=== PATIENT | female | born 1950 | race African-American/Black ===

== ENCOUNTER 2017-12-04 15:47 | Emergency (ER) | payer MEDICARE, MEDICAID ==
[2017-12-04] MEDS ORDERED: Ibuprofen 200 MG TAB ONE (16:07)
[2017-12-04] MEDS ORDERED: Acetaminophen 500 MG TAB ONE (16:16)
--- NOTE | 2017-12-04 17:07 | RAD ---
TWO VIEWS CHEST: Comparison: 07-17-13 History: Congestion for two weeks. FINDINGS: Two views of the chest show normal sized cardiomediastinal silhouette. There is no evidence of consol idation, mass, or pleural effusion. The bones are unremarkable. IMPRESSION: No evidence of acute cardiopulmonary disease. POS: [facility]
== END 2017-12-04 16:40 | disposition home or self-care (01) ==
LOC: ERS 15:47
DX: J06.9 Acute upper respiratory infection, unspecified (principal); I25.10 Atherosclerotic heart disease of native coronary artery without angina pectoris; E78.5 Hyperlipidemia, unspecified; E11.9 Type 2 diabetes mellitus without complications; I10 Essential (primary) hypertension
CPT/HCPCS: 71046; 94640; J7620

== ENCOUNTER 2018-01-24 13:48 | Outpatient (CLI) | payer MEDICARE, MEDICAID | END 2018-01-24 13:49 | disposition home or self-care (01) | LOC: BICMAMMO 13:48 | PROVIDERS: ATTEND Family Medicine | DX: Z12.31 Encounter for screening mammogram for malignant neoplasm of breast (principal) | CPT/HCPCS: 77063; 77067 ==

== ENCOUNTER 2018-03-15 05:00 | Emergency (ER) | payer MEDICARE, MEDICAID | END 2018-03-15 05:45 | disposition home or self-care (01) | LOC: ERS 05:00 | DX: T63.461A Toxic effect of venom of wasps, accidental (unintentional), initial encounter (principal); R60.0 Localized edema; E11.9 Type 2 diabetes mellitus without complications; E78.5 Hyperlipidemia, unspecified; I10 Essential (primary) hypertension; G40.909 Epilepsy, unspecified, not intractable, without status epilepticus; I25.10 Atherosclerotic heart disease of native coronary artery without angina pectoris | CPT/HCPCS: 99282 ==

== ENCOUNTER 2018-11-17 06:28 | Outpatient (CLI) | payer MEDICARE, MEDICAID ==
--- NOTE | 2018-11-17 09:31 | MRI ---
LUMBAR SPINE MRI NONCONTRAST: INDICATION: Bilateral lower extremity pain and low back pain. FINDINGS: Vertebral body heights and disk space heights are preserved. There is no significant malalignment or evidence of acute marrow edema. Conus medullaris is normal in morphology and terminates at the L1-2 level. There are mild multilevel disk bulges involving the L2-3, L3-4, and L4-5 levels without sign ificant central canal or neural foraminal stenosis at the L2-3 or L3-4 levels. At the L4-5 level, th ere is mild central canal stenosis and mild crowding of the nerve roots of each subarticular zone to involve the bilateral traversing L5 nerve roots. There is minimal narrowing of each neural foramen. There is mild bilateral degenerative facet hypertrophy. IMPRESSION: Mild disk degenerative change of the mid to lower lumbar spine. POS: [facility]
== END 2018-11-17 06:29 | disposition home or self-care (01) ==
LOC: MRI 06:28
PROVIDERS: ATTEND Psychiatry & Neurology Neurology
DX: M51.16 Intervertebral disc disorders with radiculopathy, lumbar region (principal); I66.02 Occlusion and stenosis of left middle cerebral artery
CPT/HCPCS: 72148

== ENCOUNTER 2019-01-26 12:38 | Outpatient (CLI) | payer MEDICARE, MEDICAID ==
--- NOTE | 2019-01-31 18:27 | MMO ---
Bilateral MAMMO Bilat Screen [facility]. CLINICAL HISTORY: Patient is 68 years old and is seen for screening. The patient has no family history of breast cancer. The patient has no personal history of cancer. The patient has a history of right Stereotatic Biopsy in December, - benign. VIEWS: The views performed were: bilateral craniocaudal with tomosynthesis and bilateral mediolateral oblique with tomosynthesis. FILMS COMPARED: The present examination has been compared to prior imaging studies performed at 12/18/2012, 12/07/2016 and 01/24/2018, and at [facility] on 10/11/2008, 12/11/2008, 02/06/2010 and 02/12/2011. MAMMOGRAM FINDINGS: The breasts are heterogeneously dense, which could obscure a lesion on mammography. Benign calcifications are noted bilaterally. Right biopsy clips. There are no suspicious masses, suspicious calcifications, or new areas of architectural distortion. IMPRESSION: THERE IS NO MAMMOGRAPHIC EVIDENCE OF MALIGNANCY. A ROUTINE FOLLOW-UP MAMMOGRAM IN 1 YEAR IS RECOMMENDED. THE RESULTS OF THIS EXAM WERE SENT TO THE PATIENT. ACR BI-RADS Category 2 - Benign finding MAMMOGRAPHY NOTE: 1. A negative mammogram report should not delay a biopsy if a dominant of clinically suspicious mass is present. 2. Approximately 10% to 15% of breast cancers are not detected by mammography. 3. Adenosis and dense breasts may obscure an underlying neoplasm.
== END 2019-01-26 12:39 | disposition home or self-care (01) ==
LOC: BICMAMMO 12:38
PROVIDERS: ATTEND Family Medicine
DX: Z12.31 Encounter for screening mammogram for malignant neoplasm of breast (principal)
CPT/HCPCS: 77063; 77067